=== PATIENT | male | born 1990 | race Hispanic/Latino ===

== ENCOUNTER 2025-04-13 09:30 | Emergency (ER) | payer MEDICARE ==
[~2025-04-13] VITALS: Ht 175.3 cm; Wt 159.1 kg
[2025-04-13] MEDS ORDERED: METFORMIN HCL1000 M1 PO (10:09)
[2025-04-13] MEDS ORDERED: GLIPIZIDE ER5 MG PO (10:09)
[2025-04-13] MEDS ORDERED: METOPROLOL SUC100 MG PO (10:10)
[2025-04-13] MEDS ORDERED: ZESTRIL40 MG PO (10:10)
[2025-04-13] MEDS ORDERED: CEPHALEXIN500 M1 PO (11:01)
[2025-04-13 11:11] VITALS: BP 138/81
== END 2025-04-13 11:18 | disposition home or self-care (01) ==
LOC: ED 09:30 → EDBD 09:31 → ED 09:31
DX: L02.213 Cutaneous abscess of chest wall (principal); L03.313 Cellulitis of chest wall; E11.65 Type 2 diabetes mellitus with hyperglycemia; I10 Essential (primary) hypertension; Z79.84 Long term (current) use of oral hypoglycemic drugs; Z79.899 Other long term (current) drug therapy
CPT/HCPCS: 10060; 99283-25